=== PATIENT | female | born 1985 ===

== ENCOUNTER 2022-02-25 14:37 | Emergency (ER) | payer SELFPAY ==
[2022-02-25] MEDS ORDERED: levETIRAcetam 1000 MG/NS 0.75% 1,000 MG/100 ML BAG IV ONE (15:30)
[2022-02-25] MEDS ORDERED: BUTALB/ACETAMINOPHEN/CAFFEINE TAB PO ONE (15:30)
[2022-02-25] MEDS ORDERED: SODIUM CHLORIDE 0.9% 1000 ML 1,000 ML IV ONE (15:31)
--- NOTE | 2022-02-25 15:33 | Emergency Department Report ---
HPI - General Chief Complaint: Seizure Time Seen by Provider: 02/25/22 15:20 - HPI HPI: Room 24 Patient is a 36-year-old female present with chief complaint of seizure. Patient states she has a history of seizures and has been compliant with her Keppra. Patient states she was at work given a tour when she began to feel overheated. The patient reportedly fell had a seizure. Patient states her next memory is awakening in the bathroom. Patient now complains of a headache and body aches. Patient states her last seizure before today occurred July 2021 ED Past Medical Hx - Past Medical History Hx Seizures: Yes Additional medical history: Lupus - Surgical History Additional Surgical History: Left ankle surgery - Family History Family history: no significant - Social History Smoking Status: Never Smoker Substance Use Type: None (Denies illicit drug use) - Medications Home Medications: Home Medications Medication Instructions Recorded Confirmed Last Taken Type levETIRAcetam [Keppra TAB] 500 mg PO BID #90 tablet 02/25/22 Unknown Rx ED Review of Systems ROS: Stated complaint: SEIZURE/HEAT EXHAUSTION Other details as noted in HPI Constitutional: no symptoms reported Eyes: denies: eye pain ENT: denies: throat pain Respiratory: no symptoms reported Cardiovascular: denies: dyspnea on exertion Endocrine: no symptoms reported Gastrointestinal: denies: abdominal pain Genitourinary: denies: dysuria Musculoskeletal: myalgia Neurological: headache Physical Exam - Physical Exam Vital Signs: Vital Signs 02/25/22 14:38 Pulse Rate 78 Blood Pressure 117/74 [Left] O2 Sat by Pulse 97 Oximetry Physical Exam: GENERAL: The patient is well-developed well-nourished female lying on stretcher not appearing to be in acute distress. [] HEENT: Normocephalic. Atraumatic. Extraocular motions are intact. Patient has moist mucous membranes. NECK: Supple. No meningitic signs are noted. Trachea midline CHEST/LUNGS: Clear to auscultation. There is no respiratory distress noted. HEART/CARDIOVASCULAR: Regular. There is no tachycardia. There is no gallop rub or murmur. ABDOMEN: Abdomen is soft, nontender. Patient has normal bowel sounds. There is no abdominal distention. SKIN: There is no rash. There is no edema. There is no diaphoresis. NEURO: The patient is awake, alert, and oriented. The patient is cooperative. The patient has no focal neurologic deficits. The patient has normal speech. Cranial nerves II through XII grossly intact. GCS 15 MUSCULOSKELETAL: There is no evidence of acute injury. ED Course Vital Signs 02/25/22 14:38 Pulse Rate 78 Blood Pressure 117/74 [Left] O2 Sat by Pulse 97 Oximetry ED Medical Decision Making - Lab Data Result diagrams: 02/25/22 15:43 02/25/22 15:43 Laboratory Tests 02/25/22 02/25/22 02/25/22 15:43 15:43 15:43 WBC 5.9 RBC 4.89 Hgb 8.1 L Hct 27.9 L MCV 57 L MCH 17 L MCHC 29 L RDW 21.4 H Plt Count 294 Lymph % (Auto) 32.4 [place] % (Auto) 7.4 H Eos % (Auto) 1.1 Baso % (Auto) 1.0 Lymph # (Auto) 1.9 [place] # (Auto) 0.4 Eos # (Auto) 0.1 Baso # (Auto) 0.1 Seg Neutrophils % 58.1 Seg Neutrophils # 3.4 Sodium 136 L Potassium 3.5 L Chloride 104.1 Carbon Dioxide 23 Anion Gap 12 BUN 8 Creatinine 0.8 Estimated GFR > 60 BUN/Creatinine Ratio 10 Glucose 82 Calcium 8.5 Magnesium 2.50 H HCG, Qual Negative - Differential Diagnosis Seizure Critical care attestation.: If time is entered above; I have spent that time in minutes in the direct care of this critically ill patient, excluding procedure time. ED Disposition Clinical Impression: Seizure Disposition: 01 HOME / SELF CARE / HOMELESS Is pt being admited?: No Does the pt Need Aspirin: No Condition: Stable Instructions: Epilepsy, [id number] Additional Instructions: Return to the emergency department should you develop worsening symptoms, inability to tolerate food or liquids, high fever or any other concerns Prescriptions: levETIRAcetam [Keppra TAB] 500 mg PO BID #90 tablet Referrals: LEXI FELIPE MD [Staff Physician] - 3-5 Days (Dr. Felipe is a neurologist. Please follow-up with him to be established as a patient) Time of Disposition: 16:36
[2022-02-25 16:17] LABS: Basophils # (Auto) 0.1 K/mm3 (0.0-0.1); Eosinophils # (Auto) 0.1 K/mm3 (0.0-0.4); Eosinophils % (Auto) 1.1 % (0.0-4.3); Lymphocytes # (Auto) 1.9 K/mm3 (1.2-5.4); Lymphocytes % (Auto) 32.4 % (13.4-35.0); Mean Corpuscular HGB Conc 29 % (30-34); Monocytes # (Auto) 0.4 K/mm3 (0.0-0.8); Monocytes % (Auto) 7.4 % (0.0-7.3); Platelet Count 294 K/mm3 (140-440); Red Blood Count 4.89 M/mm3 (3.65-5.03)
[2022-02-25 16:28] LABS: BUN/Creatinine Ratio 10; Blood Urea Nitrogen 8 mg/dL (7-17); Calcium 8.5 mg/dL (8.4-10.2); Hemolysis Index 0
[2022-02-25 16:34] LABS: Hematocrit 27.9 % (30.3-42.9); Hemoglobin 8.1 gm/dl (10.1-14.3); Mean Corpuscular Volume 57 fl (79-97); Red Cell Distribution Width 21.4 % (13.2-15.2)
[2022-02-25 16:42] VITALS: BP 141/69
== END 2022-02-25 17:05 | disposition home or self-care (01) ==
LOC: ED 14:37
DX: R56.9 Unspecified convulsions (principal)
CPT/HCPCS: 36415; 80048; 83735; 84703; 85025; 96365; 99284; J1953; J7030